=== PATIENT | male | born 1970 | race Two or more races ===

== ENCOUNTER 2020-12-08 12:48 | Emergency (ER) | payer SELFPAY ==
[~2020-12-08] VITALS: Ht 170.2 cm; Wt 91.0 kg
--- NOTE | 2020-12-08 13:06 | PHYS DOC ---
Past Medical History Past Medical History: No Pertinent History Past Surgical History Left leg Smoking Status: Current Every Day Smoker Alcohol Use: Heavy Additional Information: 1 BEER PER DAY Drug Use: None General Adult EDM: Chief Complaint: CHEST PAIN HPI: HPI: This is a pleasant 50-year-old male presenting the emergency department today with chest pain that is in the substernal region. It is nonradiating. He describes it as a burning sensation. It is intermittent. No alleviating or exacerbating factors. He denies shortness of breath or abdominal pain. He denies fevers chills cough nausea or vomiting. He denies diaphoresis. He denies having diabetes hypertension hyperlipidemia. He does smoke occasionally. He denies a family hx of [place]. He denies unilateral leg swelling hemoptysis recent surgery or immobilization or history of DVT or PE. Review of systems negative for abdominal pain vomiting diaphoresis fevers chills. All other review of systems negative. ED course: 50-year-old male presenting with chest pain. EKG unremarkable. Chest x-ray and blood work unremarkable. Will repeat a troponin. Initial work- up was unremarkable. Plan was to get a second troponin. Patient did not want to wait for second troponin. Patient signed out AMA. AMA I informed the patient of their right to a medical screening exam and any treatment and/or stabilization that may be necessary regardless of their ability to pay. The patient appears to have intact insight, judgment, and reason. In my opinion, this patient has the capacity to make decisions. The patient presented with chest pain and I am concerned that this could be myocardial infarction. My initial plan prior to the pt expressing the desire to leave was second troponin and telemetry monitoring in the emergency department. I explained the risk of and disability to the patient in plain language which they were able to demonstrate in their own words verbal understanding. I discussed the limitations of the workup thus far included but were not limited to decreased sensitivity without serial troponins and the need for a second troponin. The pt has verbalized understanding of my concerns. I offered alternatives to the therapy including follow-up with PCP tomorrow.. I explained that at any time if the patient changed their mind, we are always open and would be happy to have them back. The patient refused further care and then left against medical advice. Heart Score: C/O Chest Pain: Yes HEART Score for Chest Pain: HEART Score for Chest Pain Response (Comments) Value History Slighlty/Non-Suspicious 0 ECG Normal 0 Age >45 - < 65 1 Risk Factors 1 or 2 Risk Factors 1 Troponin < Normal Limit 0 Total 2 Risk Factors: Risk Factors: DM, Current or recent (<one month) smoker, HTN, HLP, family history of CAD, obesity. Risk Scores: Score 0 - 3: 2.5% MACE over next 6 weeks - Discharge Home Score 4 - 6: 20.3% MACE over next 6 weeks - Admit for Clinical Observation Score 7 - 10: 72.7% MACE over next 6 weeks - Early Invasive Strategies Physical Exam: PE: Constitutional: Well developed, well nourished, no acute distress, non-toxic appearance. [] HENT: Normocephalic, atraumatic, bilateral external ears normal, oropharynx moist, no oral exudates, nose normal. [] Eyes: PERRLA, EOMI, conjunctiva normal, no discharge. [] Neck: Normal range of motion, no tenderness, supple, no stridor. [] Cardiovascular:Heart rate regular rhythm, no murmur [] Lungs & Thorax: Bilateral breath sounds clear to auscultation [] Abdomen: Bowel sounds normal, soft, no tenderness, no masses, no pulsatile masses. [] Skin: Warm, dry, no erythema, no rash. [] Back: No tenderness, no CVA tenderness. [] Extremities: No tenderness, no cyanosis, no clubbing, ROM intact, no edema. [] Neurologic: Alert and oriented X 3, normal motor function, normal sensory function, no focal deficits noted. [] Psychologic: Affect normal, judgement normal, mood normal. [] EKG: EKG: [] EKG obtained and reviewed by myself shows sinus rhythm with regular rate. ST segments congruent. Not suggestive of acute ischemia. Radiology/Procedures: Radiology/Procedures: [] Course & Med Decision Making: Course & Med Decision Making Pertinent Labs and Imaging studies reviewed. (See chart for details) [] Dragon Disclaimer: Dragon Disclaimer: This electronic medical record was generated, in whole or in part, using a voice recognition dictation system. Departure Departure Impression: Primary Impression: Chest pain Disposition: 07 AMA/ELOPED/LWBS Condition: GUARDED TOO CORLEY MD Dec 08, 2020 13:06
[2020-12-08 13:26] LABS: BASO % 0 % (0-3); EOS # 0.1 x10^3/uL (0.0-0.7); EOS % 3 % (0-3); HEMATOCRIT 45.7 % (39.0-53.0); LYMPH # 1.1 x10^3/uL (1.0-4.8); LYMPH % 23 % (24-48); MEAN CORPUSCULAR HEMOGLOBIN 31 pg (25-35); MEAN CORPUSCULAR HGB CONC 35 g/dL (31-37); MEAN CORPUSCULAR VOLUME 88 fL (79-100); MONO # 0.4 x10^3/uL (0.0-1.1); MONO % 9 % (0-9); NEUT # 2.9 x10^3/uL (1.8-7.7); NEUT % 64 % (31-73); PLATELET COUNT 128 x10^3/uL (140-400); RED BLOOD COUNT 5.19 x10^6/uL (4.30-5.70); RED CELL DISTRIBUTION WIDTH 13.8 % (11.5-14.5); WHITE BLOOD COUNT 4.6 x10^3/uL (4.0-11.0)
--- NOTE | 2020-12-08 13:29 | RAD ---
INDICATION: Reason: left sided chest pain radiating down arm / Spl. Instructions: / History: COMPARISON: None FINDINGS: Single view of chest obtained. Cardiomediastinal silhouette is mildly enlarged. No definite focal consolidation or pulmonary edema. IMPRESSION: * No focal airspace consolidation or edema. Electronically signed by: Terry Jama MD (12/08/2020 1:27 PM) [id number]
[2020-12-08 13:41] LABS: PARTIAL THROMBOPLASTIN TIME 24 SEC (24-38); PROTHROMBIN TIME PATIENT 13.4 SEC (11.7-14.0)
[2020-12-08 13:42] LABS: CALCIUM 9.2 mg/dL (8.5-10.1); CREATININE 0.7 mg/dL (0.7-1.3); D-DIMER < 0.27 ug/mlFEU (0.00-0.50); GFR 119.4
[2020-12-08 13:48] LABS: ALBUMIN 3.9 g/dL (3.4-5.0); DIRECT BILIRUBIN 0.1 mg/dL (0.0-0.2); TOTAL BILIRUBIN 0.6 mg/dL (0.2-1.0); TOTAL PROTEIN 7.9 g/dL (6.4-8.2)
[2020-12-08 15:30] VITALS: BP 136/86
--- NOTE | 2020-12-08 16:34 | EKG ---
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
--- NOTE | 2020-12-08 16:49 | EKG ---
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
== END 2020-12-08 16:10 | disposition left against medical advice (07) ==
LOC: ER 12:48
DX: R07.89 Other chest pain (principal); R20.8 Other disturbances of skin sensation; F17.200 Nicotine dependence, unspecified, uncomplicated; F10.10 Alcohol abuse, uncomplicated
CPT/HCPCS: 36415; 71045; 80048; 80076; 83690; 83880; 84484; 85025; 85379; 85610; 85730; 93005; 99285